=== PATIENT | female | born 1965 | race Asian ===

== ENCOUNTER → 2018-09-18 16:53 | Outpatient (CLI) | payer OTHER, SELFPAY ==
--- NOTE | 2018-09-18 16:56 | DI.MRI.S_ITS ---
PROCEDURE: MR LUMBAR SPINE WO CON INDICATIONS: RADICULOPATHY OF LUMBAR REGION TECHNIQUE: Noncontrast sagittal T1 spin echo and T2 fast echo, sagittal STIR, axial T1 and T2 fast spin echo through the lumbar spine. In cases with scoliosis, additional coronal T2 fast spin echo may be performed. COMPARISON: None. FINDINGS: Image quality: Excellent. Alignment and Curvature: There is normal bony alignment. Bone Marrow: Marrow is of normal overall signal. No acute vertebral body compression fractures. Spinal Cord: Conus medullaris terminates at the L1 level. Visualized cord demonstrates normal signal and size. Paraspinous Soft Tissues: No paravertebral masses. T12-L1: Normal appearance. L1-L2: Normal appearance. L2-L3: The disc height is well-preserved. Loss of disc signal is seen at this level. Mild generalized disc bulge is seen. No significant neural foraminal or central canal narrowing can be seen. L3-L4: The disc height is well-preserved. Loss of disc signal is seen at this level. Mild generalized disc bulge is seen. Mild to moderate bilateral neural foraminal narrowing is seen, left worse than right. The central canal is widely patent. L4-L5: The disc height and disc signal are relatively well-preserved. Mild to moderate disc bulge is seen. Moderate to prominent facet hypertrophy is seen. Moderate bilateral neural foraminal narrowing is seen, left worse than right. Moderate central canal narrowing is seen. L5-S1: The disc height and disc signal are relatively well-preserved. Mild generalized disc bulge is seen. Mild to moderate facet hypertrophy is seen. [id number] bilateral neural foraminal narrowing can be seen. [id number] central canal narrowing is seen, which is largely caused by epidural lipomatosis. IMPRESSION: Lower lumbar spine degenerative changes are seen, which are most prominent at the L4-L5 level. Dictated by: Oniel Morales M.D. on 09/18/2018 at 16:54 Approved by: Oniel Morales M.D. on 09/18/2018 at 16:57
== END ==
PROVIDERS: Visit Provider Orthopaedic Surgery
DX: M47.26 Other spondylosis with radiculopathy, lumbar region (principal)
CPT/HCPCS: 72148

== ENCOUNTER 2018-10-12 01:28 | Emergency (ER) | payer OTHER, SELFPAY ==
[2018-10-12 01:43] VITALS: BP 173/137; PULSE 105; RESP 16; TEMP 36.8; O2SAT 97; BMI 31.1
--- NOTE | 2018-10-12 01:50 | ED.FEMALEGU ---
HPI - Female Genitourinary General Chief complaint: Urogenital-Female Stated complaint: blood in urine, painful Time Seen by Provider: 10/12/18 01:36 Source: patient and family Mode of arrival: ambulatory Limitations: no limitations History of Present Illness HPI Narrative: This is a 53-year-old female who comes in with complaint of urinary frequency, urgency and dysuria. Patient states that she started having some mild symptoms on Monday she was seen at the [facility] on Monday and told that her urine was negative for bladder infection. She states her symptoms have been increasingly worse. She has a little bit of suprapubic discomfort. No real flank pain. She has felt nauseated she threw up once on Monday, she has not had any more vomiting today. She has felt a little chilled occasionally. She has not had any black or bloody stools no vaginal bleeding or discharge. Related Data Previous Rx's Medication Instructions Recorded cephalexin [Keflex] 500 mg PO BID #6 cap 10/12/18 Allergies Allergy/AdvReac Type Severity Reaction Status Date / Time No Known Drug Allergies Allergy Verified 10/12/18 01:39 Review of Systems Review of Systems ROS Unobtainable: All systems reviewed & are unremarkable except as noted in HPI and below Constitutional Reports chills and Denies fever(s) Gastrointestinal Gastrointestinal: Denies abdominal pain, Denies constipation, Denies diarrhea, Reports nausea and Reports vomiting (X1) Genitourinary Reports as per HPI (Has IUD in place), Denies abnormal vaginal bleeding, Denies hematuria, Reports urinary frequency, Reports dysuria, Reports pelvic pain (C review), Denies flank pain, Denies urinary incontinence, Reports urinary urgency and Denies vaginal discharge Musculoskeletal Denies back pain [facility] Medical History Hypertension (Acute) Surgical History History of carpal tunnel surgery (Acute) Social History Smoking Status: Unknown if ever smoked Social History Smoking Status: Unknown if ever smoked Exam Narrative Exam Narrative: GENERAL: Alert and oriented x three, well-nourished, well-appearing female in mild distress. HEENT: Head normocephalic, atraumatic, EOMI, pupils reactive, face symmetric, moist mucous membranes NECK: Supple, full range of motion CARDIOVASCULAR: Regular rate and rhythm without murmurs, rubs or gallops. RESPIRATORY: Breath sounds equal bilaterally, no wheezes rales or rhonchi. ABDOMEN: Soft, nontender. Normoactive bowel sounds all 4 quadrants. No guarding or rebound, rigidity, no mass : No CVA tenderness EXTREMITIES: Normal range of motion, no clubbing or edema. Neurovascularly intact NEUROLOGICAL: Cranial nerves II through XII grossly intact. Moving all extremities SKIN: Warm, dry, no petechiae, no rashes or lesions. Initial Vital Signs Initial Vital Signs: Vital Signs Temperature 98.3 F 10/12/18 01:43 Pulse Rate 105 H 10/12/18 01:43 Respiratory Rate 16 10/12/18 01:43 Blood Pressure 173/137 H 10/12/18 01:43 Pulse Oximetry 97 10/12/18 01:43 Course Orders Ordered: ED Orders 10/12/18 01:47 Urine Culture Stat Urine Microscopic Stat Discontinued Medications Cephalexin HCl (Keflex) 500 mg PO NOW ONE Stop: 10/12/18 01:56 Last Admin: 10/12/18 02:12 Dose: 500 mg Phenazopyridine HCl (Pyridium 100mg Prepack) 1 bottle MISC SEEINSTR ONE Stop: 10/12/18 01:56 Last Admin: 10/12/18 02:12 Dose: 1 bottle Vital Signs - 8 hr 10/12/18 01:43 Temperature 98.3 F Pulse Rate 105 H Respiratory Rate 16 Blood Pressure 173/137 H Pulse Oximetry 97 MDM - Female Genitourinary Lab Data Attestation: I reviewed the patient's lab results. Lab Results 10/12/18 Range/Units 01:47 Urine RBC 0-1/hpf (0-5/HPF) Urine WBC 5-10/hpf H (0-5/HPF) Urine Bacteria Few (2-10) H (None) Hyaline Casts 0-1/lpf (None) Ur Culture Indicated? Specimen cultured Urine Dip Bedside Urine Glucose Negative Bedside Urine Bilirubin - Negative Bedside Urine Ketone - Negative Urine Specific [place] 1.010 Bedside Urine Occult Blood ++ Bedside Urine pH 6.0 Bedside Urine Protein +/- 15 Bedside Urine Urobilinogen - Negative Bedside Urine Nitrite - Negative Bedside Urine Leukocytes ++ 125 Esterase MDM Narrative Medical decision making narrative: Patient has symptoms consistent with a UTI, given a prescription for Keflex along with 1st dose here in the ED. A prepack of peridium and several extra tablets. Discussed with patient signs and symptoms to watch for. Blood pressure is elevated but asymptomatic. Patient to follow up with primary care. Discharge Plan Departure Patient Disposition: Home Clinical Impression: Urinary tract infection, Hypertension Discharge Date/Time: 10/12/18 02:19 Interventions: ED Discharge Assessment Last Done: 10/12/18 02:18 Instructions: DI for Urinary Tract Infection (UTI) Activity Restrictions/Additional Instructions: Follow up in the next 5-7 days for recheck with your primary care physician if your symptoms are not completely gone. Take Keflex 500mg twice daily x 3 days. Take until completely gone. You may take Pyridium every 8 hr as needed for bladder spasm or urinary symptoms. This medication will make your urine orange and can stay new clothes. Return to the emergency department for fevers greater than 100.4, persistent vomiting, increasing abdominal pain, back or flank pain, worsening or new or concerning symptoms. Prescriptions: New cephalexin [Keflex] 500 mg capsule 500 mg PO BID Qty: 6 RF: 0
[2018-10-12 01:56] LABS: Bacteria Urine Few (2-10); WBC Urine 5-10/HPF (0-5/HPF)
[2018-10-12 01:57] LABS: Culture Indicated Urine Specimen Cultured; Hyaline Casts Urine 0-1/LPF; RBC Urine 0-1/HPF (0-5/HPF)
[2018-10-12] MEDS: PHENAZOPYRIDINE 100 MG PREPACK 1 BOTTLE MISC (02:12)
[2018-10-12] MEDS: cephALEXin 250 MG CAPSULE 500 MG PO (02:12)
== END 2018-10-12 02:19 | disposition home or self-care (01) ==
PROVIDERS: Emergency Provider Emergency Medicine
DX: N39.0 Urinary tract infection, site not specified (principal); I10 Essential (primary) hypertension
CPT/HCPCS: 81003; 81015; 87077; 87086; 87186; 99282; 99283

== ENCOUNTER → 2021-06-10 15:36 | Outpatient (CLI) | payer OTHER, SELFPAY ==
--- NOTE | 2021-06-10 | DI.MG.S_ITS ---
BILATERAL DIGITAL SCREENING MAMMOGRAM 3D/2D WITH CAD: 06/10/2021 CLINICAL: Routine screening. Comparison is made to exams dated: 12/14/2018 mammogram and 05/17/2018 ultrasound - [facility]. The tissue of both breasts is heterogeneously dense. This may lower the sensitivity of mammography. Current study was also evaluated with a Computer Aided Detection (CAD) system. There is a biopsy clip in the right breast. No significant masses, calcifications, or other findings are seen in either breast. There has been no significant interval change. IMPRESSION: NEGATIVE There is no mammographic evidence of malignancy. A 1 year screening mammogram is recommended. This exam was interpreted at Station ID: [id number]. NOTE: For mammograms, a report in lay terms will be sent to the patient. Approximately 15% of breast malignancies will not be visualized mammographically. In the management of a palpable breast mass, a negative mammogram must not discourage biopsy of a clinically suspicious lesion. Electronically Signed By: Meliton brannon/herman:06/10/2021 16:48:36 letter sent: Normal Exam ACR BI-RADS Category 1: Negative [id number]
== END ==
PROVIDERS: PCP Family Medicine; Referring Provider Family Medicine; Visit Provider Family Medicine
DX: Z12.31 Encounter for screening mammogram for malignant neoplasm of breast (principal)
CPT/HCPCS: 77063; 77067

== ENCOUNTER 2021-10-12 17:07 | Emergency (ER) | payer OTHER, SELFPAY ==
[2021-10-12 17:38] VITALS: BP 221/103; PULSE 91; RESP 16; TEMP 36.2; O2SAT 99; BMI 30.7
[2021-10-12 18:31] VITALS: PULSE 83; O2SAT 98
[2021-10-12 18:33] VITALS: BP 200/104; PULSE 82; O2SAT 99
[2021-10-12 18:34] VITALS: BP 182/92; PULSE 84; O2SAT 99
[2021-10-12 19:02] LABS: Bacteria Urine Moderate (10-30); RBC Urine None Seen (0-5/HPF); WBC Urine 10-30/HPF (0-5/HPF)
--- NOTE | 2021-10-12 19:05 | ED.FEMALEGU ---
HPI - Female Genitourinary <Zita Curry PA-C - Last Filed: 10/12/21 20:57> General Chief complaint: Urogenital-Female Stated complaint: UTI Sx Time Seen by Provider: 10/12/21 18:31 Source: patient Mode of arrival: Ambulatory History of Present Illness HPI Narrative: 56-year-old female with no reported past medical history presents to the ED with 3 days of dysuria, urinary frequency, urinary urgency. Patient denies frequent UTIs. Patient denies fever, chills, nausea, vomiting, abdominal pain, flank pain, lightheadedness, dizziness, syncope. Related Data Previous Rx's Medication Instructions Recorded cephalexin 500 mg capsule (Keflex) 500 mg PO BID #6 cap 10/12/18 nitrofurantoin 100 mg PO BID 5 Days #10 cap 10/12/21 monohydrate/macrocrystals 100 mg capsule (Macrobid) Allergies Allergy/AdvReac Type Severity Reaction Status Date / Time No Known Drug Allergies Allergy Verified 10/12/21 17:43 Review of Systems <Zita Curry PA-C - Last Filed: 10/12/21 20:57> Review of Systems ROS Unobtainable: All systems reviewed & are unremarkable except as noted in HPI and below Constitutional Constitutional: Denies chills, Denies fatigue, Denies fever(s), Denies frequent falls, Denies lethargy and Denies weakness Eyes Eyes: Denies change in vision, Denies eye discharge, Denies irritation and Denies loss of vision ENT Ears, Nose, Mouth, and Throat: Denies change in voice, Denies dizziness, Denies neck pain, Denies sore throat and Denies throat swelling Cardiovascular Cardiovascular: Denies chest pain, Denies irregular heart rhythm, Denies lightheadedness, Denies palpitations, Denies dyspnea, Denies dyspnea on exertion and Denies orthopnea Respiratory Respiratory: Denies cough, Denies dyspnea, Denies dyspnea on exertion and Denies wheezing Gastrointestinal Gastrointestinal: Denies abdominal pain, Denies change in bowel habits, Denies diarrhea, Denies nausea and Denies vomiting Comments: No flank pain Genitourinary Genitourinary: Denies hematuria, Reports dysuria, Reports dysuria, Denies flank pain, Denies urinary incontinence and Reports urinary urgency Comments: Dysuria, urinary frequency, urinary urgency Musculoskeletal Musculoskeletal: Denies back pain, Denies muscle weakness, Denies neck pain, Denies numbness and Denies tingling Integumentary/Breasts Skin/Breast: Denies pruritus, Denies erythema, Denies rash and Denies wounds Neurologic Neurologic: Denies behavioral changes, Denies confusion, Denies dizziness, Denies frequent falls, Denies loss of vision, Denies numbness, Denies tingling and Denies weakness Psychiatric Psychiatric: Denies anxiety, Denies behavioral changes, Denies confusion, Denies depression, Denies homicidal ideation and Denies suicidal ideation Endocrine Endocrine: Denies fatigue, Denies flushing and Denies palpitations Hematologic/Lymphatic Hematologic/Lymphatic: Denies easy bruising Allergic/Immunologic Allergic/Immunologic: Denies urticaria, Denies throat swelling and Denies wheezing Patient History <Zita Curry PA-C - Last Filed: 10/12/21 20:57> Medical History Hypertension Surgical History History of carpal tunnel surgery alcohol intake frequency: holidays/special occasions only Substance Use Type: does not use Exam <Zita Curry PA-C - Last Filed: 10/12/21 20:57> Initial Vital Signs Initial Vital Signs: Vital Signs Temperature 97.2 F L 10/12/21 17:38 Pulse Rate 91 H 10/12/21 17:38 Respiratory Rate 16 10/12/21 17:38 Blood Pressure 221/103 H 10/12/21 17:38 Pulse Oximetry 99 10/12/21 17:38 Const General: cooperative, healthy appearing and comfortable [facility] Head: normal to inspection Eyes General: appearance normal, both eyes and all related structures Neck Neck: normal visual inspection Resp Effort & Inspection: normal respiratory effort Auscultation: clear to auscultation bilaterally Cardio Rate: regular rate Rhythm: regular rhythm GI Other: Abdomen is soft, nondistended, nontender to palpation. No CVA tenderness. General: No CVA tenderness Skin General: no rashes or lesions noted Neuro General: patient alert, patient awake and patient oriented x3 Psych Appearance: grossly normal Mental Status: mental status grossly normal <Grady Magallanes DO - Last Filed: 10/13/21 00:28> Initial Vital Signs Initial Vital Signs: Vital Signs Temperature 97.2 F L 10/12/21 17:38 Pulse Rate 91 H 10/12/21 17:38 Respiratory Rate 16 10/12/21 17:38 Blood Pressure 221/103 H 10/12/21 17:38 Pulse Oximetry 99 10/12/21 17:38 Course <Zita Curry PA-C - Last Filed: 10/12/21 20:57> Orders Ordered: ED Orders 10/12/21 17:53 Urine Culture Stat 10/12/21 19:00 Urine Microscopic Stat Discontinued Medications Nitrofurantoin Macrocrystals (Nitrofurantoin Er 100 Mg Capsule) 100 mg PO NOW ONE Stop: 10/12/21 19:12 Last Admin: 10/12/21 19:21 Dose: 100 mg Documented by: [email or web address] Vital Signs Vital signs: Vital Signs - 8 hr 10/12/21 17:38 10/12/21 18:31 10/12/21 18:33 Temperature 97.2 F L Pulse Rate 91 H 83 82 Respiratory Rate 16 Blood Pressure 221/103 H 200/104 H Pulse Oximetry 99 98 99 10/12/21 18:34 10/12/21 19:24 Temperature Pulse Rate 84 89 Respiratory Rate 12 Blood Pressure 182/92 H 160/78 H Pulse Oximetry 99 98 <Grady Magallanes DO - Last Filed: 10/13/21 00:28> Orders Ordered: ED Orders 10/12/21 17:53 Urine Culture Stat 10/12/21 19:00 Urine Microscopic Stat Discontinued Medications Nitrofurantoin Macrocrystals (Nitrofurantoin Er 100 Mg Capsule) 100 mg PO NOW ONE Stop: 10/12/21 19:12 Last Admin: 10/12/21 19:21 Dose: 100 mg Documented by: [email or web address] Vital Signs Vital signs: Vital Signs - 8 hr 10/12/21 17:38 10/12/21 18:31 10/12/21 18:33 Temperature 97.2 F L Pulse Rate 91 H 83 82 Respiratory Rate 16 Blood Pressure 221/103 H 200/104 H Pulse Oximetry 99 98 99 10/12/21 18:34 10/12/21 19:24 Temperature Pulse Rate 84 89 Respiratory Rate 12 Blood Pressure 182/92 H 160/78 H Pulse Oximetry 99 98 MDM - Female Genitourinary <Zita Curry PA-C - Last Filed: 10/12/21 20:57> Lab Data Lab results narrative: UA positive for UTI Labs: Lab Results 10/12/21 Range/Units 19:00 Urine RBC None seen (0-5/HPF) Urine WBC 10-30/hpf H (0-5/HPF) Urine Bacteria Moderate (10-30) H (None) Ur Culture Indicated? Culture not indicate Urine Dip Bedside Urine Glucose Negative Bedside Urine Bilirubin - Negative Bedside Urine Ketone - Negative Urine Specific [place] 1.015 Bedside Urine Occult Blood ++ Bedside Urine pH 6.0 Bedside Urine Protein - Negative Bedside Urine Urobilinogen - Negative Bedside Urine Nitrite - Negative Bedside Urine Leukocytes ++ 125 Esterase MDM Narrative Medical decision making narrative: 56-year-old female with no reported past medical history presents to the ED with 3 days of dysuria, urinary frequency, urinary urgency. UA positive for UTI. Given history, symptoms, UA, patient likely has a UTI. Will prescribe Macrobid. Counseled patient on ED return precautions. Patient verbalized understanding. Discharge patient. <Grady Magallanes DO - Last Filed: 10/13/21 00:28> Lab Data Labs: Lab Results 10/12/21 Range/Units 19:00 Urine RBC None seen (0-5/HPF) Urine WBC 10-30/hpf H (0-5/HPF) Urine Bacteria Moderate (10-30) H (None) Ur Culture Indicated? Culture not indicate Urine Dip Bedside Urine Glucose Negative Bedside Urine Bilirubin - Negative Bedside Urine Ketone - Negative Urine Specific [place] 1.015 Bedside Urine Occult Blood ++ Bedside Urine pH 6.0 Bedside Urine Protein - Negative Bedside Urine Urobilinogen - Negative Bedside Urine Nitrite - Negative Bedside Urine Leukocytes ++ 125 Esterase Discharge Plan Departure Patient Disposition: Home Clinical Impression: Urinary tract infection Instructions: DI for Urinary Tract Infection (UTI) Activity Restrictions/Additional Instructions: You were evaluated in the ED today for painful urination. Your urinalysis showed that you have a UTI. You have been prescribed an antibiotic Macrobid for 5 days. Please make sure to complete the full course. Return to the ED if your symptoms worsen, you develop flank pain, fever, chills, nausea, vomiting. Prescriptions: New nitrofurantoin monohyd/m-cryst [Macrobid] 100 mg capsule 100 mg PO BID 5 Days Qty: 10 0RF Rx Instructions: must administer with a meal/food No Action cephalexin [Keflex] 500 mg capsule 500 mg PO BID Qty: 6 0RF Referrals: Gregory Preciado MD [Primary Care Provider] - <Grady Magallanes DO - Last Filed: 10/13/21 00:28> Cosign ED Attending Irvinature Attestation: I was immediately available in the department for consultation. This documentation has been reviewed and I agree with assessment and plan. Supervised by Grady Magallanes DO
[2021-10-12] MEDS: NITROFURANTOIN ER 100 MG CAPSULE PO (19:21)
[2021-10-12 19:24] VITALS: BP 160/78; PULSE 89; RESP 12; O2SAT 98
== END 2021-10-12 19:24 | disposition home or self-care (01) ==
PROVIDERS: Emergency Medicine; Emergency Provider Student in an Organized Health Care Education/Training Program; PCP Family Medicine
DX: N39.0 Urinary tract infection, site not specified (principal)
CPT/HCPCS: 81003; 81015; 87077; 87086; 87186; 99283

== ENCOUNTER 2021-11-25 08:23 | Emergency (ER) | payer OTHER, SELFPAY ==
[2021-11-25 08:38] VITALS: BP 176/88; PULSE 75; RESP 18; TEMP 36.9; O2SAT 97; BMI 31.4
--- NOTE | 2021-11-25 08:39 | DI.RAD.S_ITS ---
PROCEDURE: XR WRIST RT MIN 3V INDICATIONS: fall pain TECHNIQUE: 4 views of the wrist were acquired. COMPARISON: None. FINDINGS: Bones: Question scaphoid abnormality. No other fractures or dislocations. No suspicious bony lesions. Scaphoid view: There is linear sclerosis at the lateral aspect of the scaphoid waist, possibly projectional. However, cannot exclude fracture. Soft tissues: No suspicious soft tissue calcifications. IMPRESSION: At abnormal appearance of the scaphoid may be projectional. Alternatively, it may potentially represent findings of a scaphoid waist fracture. Suggest correlation with clinical examination. Comment: Findings were discussed with Dr. Garrett at the time of study dictation. Dictated by: Jamil Phillips M.D. on 11/25/2021 at 9:21 Approved by: Jamil Phillips M.D. on 11/25/2021 at 9:26
--- NOTE | 2021-11-25 08:44 | ED.UPPEXIN ---
HPI - Extremity Injury (Upper) General Chief Complaint: Extremity Injury, Upper Stated Complaint: Fell yesterday- right hand swollen Time Seen by Provider: 11/25/21 08:35 Source: patient Mode of arrival: Ambulatory History of Present Illness HPI narrative: Patient is a 56-year-old female who presents after a fall down 2 stairs. She said she was going down the stairs yesterday she tried to grab a hand rail and fell she actually landed on her left knee but is complaining of right wrist pain today. She says he is ambulatory no knee issues. Past pain in her right wrist. No elbow pain. No pain with pronation or supination no numbness tingling or weakness Related Data Previous Rx's Medication Instructions Recorded cephalexin 500 mg capsule (Keflex) 500 mg PO BID #6 cap 10/12/18 hydrocodone 5 mg-acetaminophen 325 1 tab PO Q6H PRN #10 tab 11/25/21 mg tablet Allergies Allergy/AdvReac Type Severity Reaction Status Date / Time No Known Drug Allergies Allergy Verified 10/12/21 17:43 Review of Systems Review of Systems Narrative: GENERAL: Denies chills,fever HEENT: Denies throat pain RESPIRATORY: Denies dyspnea, cough, wheezing CARDIOVASCULAR: Denies chest pain, palpitations GASTROINTESTINAL: Denies nausea, vomiting MUSCULOSKELETAL: See HPI SKIN: No rash, no laceration, no pruritus NEUROLOGIC: Denies weakness, dizziness, headache, numbness 8 point review of systems is negative except for those stated above and HPI Patient History Medical History Hypertension Surgical History History of carpal tunnel surgery Social History Smoking Status: Unknown if ever smoked Smoking Status: Unknown if ever smoked alcohol intake frequency: holidays/special occasions only Substance Use Type: does not use Exam Initial Vital Signs Initial Vital Signs: Vital Signs Temperature 98.5 F 11/25/21 08:38 Pulse Rate 75 11/25/21 08:38 Respiratory Rate 18 11/25/21 08:38 Blood Pressure 176/88 H 11/25/21 08:38 Pulse Oximetry 97 11/25/21 08:38 GENERAL: Well-appearing, well-nourished and in no acute distress. CARDIOVASCULAR: peripheral pulses in tact, cap refill <2 sec RESPIRATORY: No respiratory distress, speaks in full sentences without difficulty EXTREMITIES: Normal range of motion, no clubbing or edema. Neurovascularly intact Right upper extremity mild swelling no numbness or tingling Radian median and ulnar nerve sensation and motor intact. She does have pain over the snuffbox and scaphoid pain with resistance to thumb NEUROLOGICAL: Cranial nerves II through XII grossly intact. Normal gait and speech. SKIN: Warm, dry, no petechiae, no rashes or lesions. Course Orders Ordered: Discontinued Medications Ibuprofen (Ibuprofen 400 Mg Tablet) 800 mg PO NOW ONE Stop: 11/25/21 08:40 Last Admin: 11/25/21 08:50 Dose: 800 mg Documented by: DEL Vital Signs Vital signs: Vital Signs - 8 hr 11/25/21 08:38 Temperature 98.5 F Pulse Rate 75 Respiratory Rate 18 Blood Pressure 176/88 H Pulse Oximetry 97 MDM - Extremity Injury (Upper) Imaging Data Extremity x-ray #1: Radiologist's Impression: PROCEDURE:? XR WRIST RT MIN 3V ? INDICATIONS: fall pain ? TECHNIQUE:? 4 views of the wrist were acquired.? ? COMPARISON:? None. ? FINDINGS:? ? Bones:? Question scaphoid abnormality.? No other fractures or dislocations.? No suspicious bony lesions.? ? Scaphoid view:? There is linear sclerosis at the lateral aspect of the scaphoid waist, possibly projectional.? However, cannot exclude fracture. ? Soft tissues:? No suspicious soft tissue calcifications.? ? IMPRESSION:? At abnormal appearance of the scaphoid may be projectional.? Alternatively, it may potentially represent findings of a scaphoid waist fracture.? Suggest correlation with clinical examination. ? Comment: Findings were discussed with Dr. Garrett at the time of study dictation. ? ? Dictated by: Jamil Phillips M.D. on 11/25/2021 at 9:21 ? ? Approved by: Jamil Phillips M.D. on 11/25/2021 at 9:26 ? [facility] Narrative Medical decision making narrative: Patient is tender over the scaphoid x-ray suspicious for a scaphoid fracture. Patient placed in a thumb spica splint recommended outpatient follow-up with Orthopedics. Discharge Plan Departure Patient Disposition: Home Clinical Impression: Fracture of scaphoid Instructions: Wrist Fracture Activity Restrictions/Additional Instructions: *You have been diagnosed with scaphoid fracture *What to do: Wear splint at all times. you need to follow-up with orthopedics. *Continue to take medications as directed--> SENT TO DOD Tylenol 650 mg every 4-6 hours need for [id number] [place] 1 tab every 6 hours or at nighttime if needed for severe (please see below in monitor the amount Tylenol you are taking) *Follow up with your primary care provider in 2-3 days or call [phone] Please call orthopedics to schedule a follow-up appointment *Return to ER if you should have increasing pain, weakness any new, worsening or concerning symptoms CONTROLLED SUBSTANCE DISCHARGE (Narcotoic/benzodiazepine/Flexeril/Phenergan) 1. You have been prescribed narcotic medications, it does have acetaminophen/Tylenol/paracetamol in it, DO NOT TAKE MORE THAN 4,00mg in 24 hours of Tylenol. TRAMADOL DOES NOT CONTAIN TYLENOL 2. Please understand that we cannot provide further refills of narcotics, benzodiazepines or controlled substances through the ED and her pain management will need to be through your provider. 3. While on these medications you cannot drive or operate heavy machinery. 4. You cannot sign legal documents or perform any duties such as this. 5. As long as you're taking opiate pain medications he should also be taking a stool softener such as Colace, Dulcolax, MiraLAX or prune juice, to help avoid constipation. Prescriptions: New hydrocodone-acetaminophen 5-325 mg tablet 1 tab PO Q6H PRN (Reason: pain) Qty: 10 0RF No Action cephalexin [Keflex] 500 mg capsule 500 mg PO BID Qty: 6 0RF Referrals: [facility] [Provider Group] Gregory Preciado MD [Primary Care Provider] -
[2021-11-25] MEDS: IBUPROFEN 400 MG TABLET 800 MG PO (08:50)
[2021-11-25 10:26] VITALS: BP 175/81; PULSE 62; RESP 18; O2SAT 96
== END 2021-11-25 10:27 | disposition home or self-care (01) ==
PROVIDERS: Emergency Provider Emergency Medicine; PCP Family Medicine
DX: S62.001A Unspecified fracture of navicular [scaphoid] bone of right wrist, initial encounter for closed fracture (principal); W10.9XXA Fall (on) (from) unspecified stairs and steps, initial encounter
CPT/HCPCS: 73110; 99283

== ENCOUNTER → 2022-01-09 14:39 | Outpatient (CLI) | payer OTHER, SELFPAY ==
--- NOTE | 2022-01-09 14:42 | DI.MRI.S_ITS ---
PROCEDURE: MR WRIST RT WO CON INDICATIONS: RIGHT WRIST PAIN TECHNIQUE: Noncontrast coronal proton density fast spin echo and T2 fast spin echo with fat saturation; coronal 3-D gradient echo, axial T1 spin echo and T2 fast spin echo with fat saturation, sagittal T1 spin echo through the wrist. COMPARISON: [facility] [place], CR, XR WRIST 3+ VIEWS RIGHT, 12/24/2021, 14:32. FINDINGS: Image quality: Excellent. Bones and cartilage: The carpal bones are normally aligned. No bone marrow contusions or fractures. No evidence for avascular necrosis. Periarticular osteophyte formation at the scaphoid trapezial and 1st carpometacarpal joints. Mild degenerative marrow edema adjacent to the 1st metacarpophalangeal joint. Overlying cartilage surfaces appear normal. Carpal ligaments: The scapholunate and lunotriquetral ligaments appear intact. In the absence of intra-articular contrast, the extrinsic carpal ligaments are not well identified. On sagittal images, the pisohamate ligament appears intact. Triangular fibrocartilage complex: Horizontally oriented linear high T2 signal intensity traverses the dorsal aspect of the triangular fibrocartilage complex. The adjacent meniscal homolog appears normal in the absence of intra-articular contrast. The extensor carpi ulnaris tendon is normal in location and morphology. Tendons and soft tissues: The carpal tunnel structures appear normal, including the median nerve. The ulnar nerve appears normal within Guyon's canal. All six extensor tendon compartments demonstrate normal morphology, without pathologic tendon sheath fluid. No soft tissue ganglion cysts. IMPRESSION: 1. Findings suggestive of a triangular fibrocartilage complex tear. This could be confirmed with MRI arthrography, if clinically indicated. 2. Scaphoid trapezial and 1st carpometacarpal joint osteoarthritis. Dictated by: Gutierrez Morales M.D. on 01/10/2022 at 9:16 Approved by: Gutierrez Morales M.D. on 01/10/2022 at 9:18
== END ==
PROVIDERS: PCP Family Medicine; Referring Provider Orthopaedic Surgery; Visit Provider Orthopaedic Surgery
DX: M18.11 Unilateral primary osteoarthritis of first carpometacarpal joint, right hand (principal); M19.031 Primary osteoarthritis, right wrist
CPT/HCPCS: 73221

== ENCOUNTER 2022-07-31 10:56 | Emergency (ER) | payer OTHER, SELFPAY ==
[2022-07-31 11:01] VITALS: PULSE 102
[2022-07-31 11:02] VITALS: BP 190/87; PULSE 86; O2SAT 97
[2022-07-31 11:06] VITALS: BP 190/87; PULSE 87; RESP 18; O2SAT 98; BMI 31.1
--- NOTE | 2022-07-31 11:07 | DI.RAD.S_ITS ---
PROCEDURE: XR KNEE LT 3V INDICATIONS: pain lateral knee with bending TECHNIQUE: 3 views of the knee were acquired. COMPARISON: None. FINDINGS: Bones: No fractures or dislocations. No suspicious bony lesions. Mild tricompartmental periarticular osteophyte formation. Soft tissues: No joint effusion. No suspicious soft tissue calcifications. IMPRESSION: No acute fracture. No osseous lesion. If symptoms and/or clinical suspicion for pathology persist, further assessment with repeat, or advanced imaging (e.g., CT, MRI, or bone scan) may be helpful for further assessment. Dictated by: Gutierrez Morales M.D. on 07/31/2022 at 10:21 Approved by: Gutierrez Morales M.D. on 07/31/2022 at 10:22
--- NOTE | 2022-07-31 11:08 | ED_ITS ---
HPI - General Adult General Chief complaint: Extremity Problem,Nontraumatic Stated complaint: LT knee pain t-4 cant bend pressure hurts up back Time Seen by Provider: 07/31/22 10:59 Source: patient Mode of arrival: Ambulatory Limitations: no limitations History of Present Illness HPI narrative: Patient is a 57-year-old female who is here for evaluation of left knee pain. It has been hurting for the past 4 days. She is been doing Tylenol and ibuprofen with only minimal help. No specific injury. She was at work when it happened. She states that it feels like it hurts on the inside of her knee. There is no instability. Pain does seem to radiate up in down her leg from the knee. Related Data Previous Rx's Medication Instructions Recorded cephalexin 500 mg capsule (Keflex) 500 mg PO BID #6 caps 10/12/18 hydrocodone 5 mg-acetaminophen 325 1 tab PO Q6H PRN pain #10 tabs 11/25/21 mg tablet hydrocodone 5 mg-acetaminophen 325 1 tab PO Q4-6H PRN pain #7 tabs 07/31/22 mg tablet Allergies Allergy/AdvReac Type Severity Reaction Status Date / Time No Known Drug Allergies Allergy Verified 07/31/22 11:06 Review of Systems Musculoskeletal Musculoskeletal: Reports system reviewed and no additional complaints, except as documented Integumentary/Breasts Skin/Breast: Reports system reviewed and no additional complaints, except as documented Neurologic Neurologic: Reports system reviewed and no additional complaints, except as documented Hematologic/Lymphatic On Anticoagulants: No Patient History Medical History Hypertension Surgical History History of carpal tunnel surgery Social History Smoking Status: Unknown if ever smoked Smoking Status: Unknown if ever smoked alcohol intake frequency: holidays/special occasions only Substance Use Type: does not use Exam Initial Vital Signs Initial Vital Signs: Vital Signs Pulse Rate 87 07/31/22 11:06 Respiratory Rate 18 07/31/22 11:06 Blood Pressure 190/87 H 07/31/22 11:06 Pulse Oximetry 98 07/31/22 11:06 Oxygen Delivery Method 07/31/22 11:06 Const General: cooperative and comfortable HENMT Head: normal to inspection and normocephalic Resp Effort & Inspection: normal respiratory effort Skin General: no rashes or lesions noted Neuro General: patient alert, patient awake, patient oriented x3 and moves all extremities Sensory Exam: no sensory deficits noted Extrem Other: Patient does have tenderness to palpation on the lateral aspect of the knee. She does have discomfort along the mediolateral joint line. She is able to do a straight leg raise. She can bend her knee but it feels like it is tender on the inside. ACL MCL PCL and LCL are intact with functional testing. Course Orders Ordered: ED Orders 07/31/22 11:07 XR knee LT 3V Stat Vital Signs Vital signs: Vital Signs - 8 hr 07/31/22 11:06 07/31/22 11:09 Temperature 98.0 F Pulse Rate 87 Respiratory Rate 18 Blood Pressure 190/87 H Pulse Oximetry 98 Oxygen Delivery Method Room Air Medical Decision Making Imaging Data Extremity x-ray #1: Radiologist's Impression: [address] [address] XRay Report Signed Patient: Alysha Bojorquez MR#: [id number] : 1965 Acct:[id number] Age/Sex: 57 / F Date of Service: 07/31/22 Loc: ED Accession Number: [id number] ?? Procedure: XR knee LT 3V Ordering Provider: Stu Lanier D.O. PROCEDURE:? XR KNEE LT 3V ? INDICATIONS:? pain lateral knee with bending ? TECHNIQUE:? 3 views of the knee were acquired.? ? COMPARISON:? None. ? FINDINGS:? ? Bones:? No fractures or dislocations.? No suspicious bony lesions.? Mild tricompartmental periarticular osteophyte formation. ? Soft tissues:? No joint effusion.? No suspicious soft tissue calcifications.? ? ? IMPRESSION:? No acute fracture. No osseous lesion. If symptoms and/or clinical suspicion for pathology persist, further assessment with repeat, or advanced imaging (e.g., CT, MRI, or bone scan) may be helpful for further assessment. ? ? Dictated by: Gutierrez Morales M.D. on 07/31/2022 at 10:21 ? ? Approved by: Gutierrez Morales M.D. on 07/31/2022 at 10:22?? MDM Narrative Medical decision making narrative: Patient is neurovascularly intact. X-ray shows no signs of fracture. She did not have a specific injury. There is no effusion noted on exam. Skin is not red. Is not warm. Low suspicion for septic joint/gout. Low suspicion for ligamentous injury. Could potentially have a meniscal injury. Will discharge home with symptom control. And a left bandage was provided to her to take home for her comfort. He was given return precautions. She expressed understanding and agreement. Also low suspicion for DVT based on her clinical exam/presentation today Discharge Plan Departure Patient Disposition: Home Clinical Impression: Knee pain Instructions: How To Perform RICE (Rest, Ice, Compress, Elevate), DI for Knee Pain, How to Apply an Elastic Wrap on Knee Activity Restrictions/Additional Instructions: I recommend that you contact your primary doctor for a follow-up especially if your symptoms do not improve in the next couple days. Try to keep your leg elevated. Use ice. Use the Kelvin bandage for comfort. Return to the emergency department for any new symptoms. Prescriptions: New hydrocodone-acetaminophen 5-325 mg tablet 1 tab PO Q4-6H PRN (Reason: pain) Qty: 7 0RF No Action cephalexin [Keflex] 500 mg capsule 500 mg PO BID Qty: 6 0RF hydrocodone-acetaminophen 5-325 mg tablet 1 tab PO Q6H PRN (Reason: pain) Qty: 10 0RF Referrals: ProviderDonna [Primary Care Provider] - Stand Alone Forms: Work Release Note
[2022-07-31 11:09] VITALS: TEMP 36.7
[2022-07-31 11:30] VITALS: PULSE 77; O2SAT 97
[2022-07-31 11:31] VITALS: BP 164/79; PULSE 76; O2SAT 98
[2022-07-31] MEDS: HYDROCODONE/ACET 5/325 TABLET 1 TAB PO (11:38)
== END 2022-07-31 11:45 | disposition home or self-care (01) ==
PROVIDERS: Emergency Provider Emergency Medicine
DX: M25.562 Pain in left knee (principal)
CPT/HCPCS: 73562; 99283

== ENCOUNTER 2024-01-05 15:40 | Emergency (ER) | payer OTHER, SELFPAY ==
[2024-01-05 15:59] VITALS: BP 154/77; PULSE 81; RESP 16; TEMP 36.9; O2SAT 97; BMI 30.7
--- NOTE | 2024-01-05 17:17 | ED.BACK ---
HPI - Back Pain/Injury <Catherine Osborn PA-C - Last Filed: 01/05/24 18:33> General Chief Complaint: Back Pain/Injury Stated Complaint: fell at work T-3 Time Seen by Provider: 01/05/24 17:16 Source: patient History of Present Illness HPI Narrative: 58-year-old female presents for a work-related injury. She works at [employer] and fell on January 02, 2024. She states she was walking slipped on a cart that was nearby and fell directly onto her backside. She is denying any precipitating events. Since that time the pain has gotten worse constant and more frequent. She points to the lumbar sacral region. She denies any radiation of symptoms down the buttock or legs. She states it hurts when she gets up subsides a little bit during walking but then recurs. She is denying any numbness, tingling or loss of sensation, no issues with bowel or bladder. She does report a previous back injury in 2017 stating she was told that she has a bulging disc at L4-L5. 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 No prior surgeries. Managing her pain currently with Tylenol last dose about 6 hours ago and hot showers. She is currently menopausal. Her primary care is at the [facility]. All other systems are reviewed and are negative. Related Data Previous Rx's Medication Instructions Recorded cephalexin 500 mg capsule (Keflex) 500 mg PO BID #6 caps 10/12/18 hydrocodone 5 mg-acetaminophen 325 1 tab PO Q6H PRN pain #10 tabs 11/25/21 mg tablet hydrocodone 5 mg-acetaminophen 325 1 tab PO Q4-6H PRN pain #7 tabs 07/31/22 mg tablet hydrocodone 5 mg-acetaminophen 325 1 tab PO Q4-6H PRN pain #7 tabs 07/31/22 mg tablet cyclobenzaprine 10 mg tablet 10 mg PO TID PRN muscle spasm #20 01/05/24 tabs ibuprofen 600 mg tablet 600 mg PO Q8H 5 days #15 tabs 01/05/24 Allergies Allergy/AdvReac Type Severity Reaction Status Date / Time No Known Drug Allergies Allergy Verified 07/31/22 11:06 Patient History <Catherine Osborn PA-C - Last Filed: 01/05/24 18:33> Medical History Hypertension Surgical History History of carpal tunnel surgery Social History Smoking Status: Unknown if ever smoked Smoking Status: Unknown if ever smoked alcohol intake frequency: holidays/special occasions only Substance Use Type: does not use Exam <Catherine Osborn PA-C - Last Filed: 01/05/24 18:33> Initial Vital Signs Initial Vital Signs: Vital Signs Temperature 98.4 F 01/05/24 15:59 Pulse Rate 81 01/05/24 15:59 Respiratory Rate 16 01/05/24 15:59 Blood Pressure 154/77 H 01/05/24 15:59 Pulse Oximetry 97 01/05/24 15:59 Oxygen Delivery Method Room Air 01/05/24 15:59 Vital signs reviewed and are normal except for elevated systolic. Const Other: Smiling, seated on the gurney in no obvious distress. Neck Other: No focal bony midline tenderness, full range of motion of the neck. Resp Other: Clear to auscultation throughout. Cardio Other: Heart is regular rate and rhythm. Back/Spine/Pelvis Other: Inspection there is no discoloration or breaks in the skin, no rash to the back. She has focal tenderness in the L4-L5 S1 regions in the midline but also in the paraspinous tissues. No guarding with interspace palpation. Active range of motion she is able to demonstrate standing from a seated position without difficulty. She can forward flex reaching her fingertips to the level of her knees she has full extension. She is able to perform lateral bending left side causes pain more so than the right side, lateral rotation is also intact but causes some tightness and discomfort no guarding. Straight leg raise is negative bilaterally. Normal gait. Full weightbear. Distal neurovascular is grossly intact. Equal DP pulses. Sensory throughout all dermatomal distributions is grossly intact. Skin Other: Normal color, turgor, temperature. Neuro Other: Deep tendon reflexes are 2+ bilaterally in the knee jerk, 2+ in the ankle and plantar are downward. Sensory grossly intact. Extrem Other: Full active range of motion of the hips strength is grossly intact throughout all cardinal directions. <Stella Garrett DO - Last Filed: 01/06/24 07:38> Initial Vital Signs Initial Vital Signs: Vital Signs Temperature 98.4 F 01/05/24 15:59 Pulse Rate 81 01/05/24 15:59 Respiratory Rate 16 01/05/24 15:59 Blood Pressure 154/77 H 01/05/24 15:59 Pulse Oximetry 97 01/05/24 15:59 Oxygen Delivery Method Room Air 01/05/24 15:59 Course <Catherine Osborn PA-C - Last Filed: 01/05/24 18:33> Course Course Narrative: Treated with Toradol 30 mg IM. No adverse reaction. Orders Ordered: Discontinued Medications Ketorolac Tromethamine (Ketorolac 30 Mg/Ml Vial) 30 mg IM NOW ONE Stop: 01/05/24 18:21 Last Admin: 01/05/24 18:27 Dose: 30 mg Documented By: NL Vital Signs Vital signs: Vital Signs - 8 hr 01/05/24 15:59 Temperature 98.4 F Pulse Rate 81 Respiratory Rate 16 Blood Pressure 154/77 H Pulse Oximetry 97 Oxygen Delivery Method Room Air <Stella Garrett DO - Last Filed: 01/06/24 07:38> Orders Ordered: Discontinued Medications Ketorolac Tromethamine (Ketorolac 30 Mg/Ml Vial) 30 mg IM NOW ONE Stop: 01/05/24 18:21 Last Admin: 01/05/24 18:27 Dose: 30 mg Documented By: NL Vital Signs Vital signs: Vital Signs - 8 hr 01/05/24 15:59 Temperature 98.4 F Pulse Rate 81 Respiratory Rate 16 Blood Pressure 154/77 H Pulse Oximetry 97 Oxygen Delivery Method Room Air MDM - Back Pain/Injury <Catherine Osborn PA-C - Last Filed: 01/05/24 18:33> Medical Records Attestation: I reviewed the patient's medical records. Imaging Data Lumbar series X-ray: My Impression: Deferred to Radiology interpretation. Radiologist's Impression: PROCEDURE: XR LUMBAR SPINE 2-3V INDICATIONS: fall onto back 01/01. Pain L4, L5, S1 TECHNIQUE: 3 views of the lumbar spine were acquired. COMPARISON: None. FINDINGS: Bones: 5 [id number] vertebrae are present. There is trace grade 1 anterolisthesis of L4 on L5. No vertebral body compression fractures. No suspicious bony lesions. Mild degenerative changes at L4-L5 and L5-S1. Soft tissues: Overlying bowel gas pattern is normal. No suspicious soft tissue calcifications. IMPRESSION: No acute bony abnormality. Trace grade 1 anterolisthesis of L4 on L5. Mild discogenic degenerative changes at L4-L5 and L5-S1. Approved by: Dayan Lee M.D.,Ph.D. on 01/05/2024 at 17:50 MDM Narrative Medical decision making narrative: No acute clinical findings on examination to warrant further imaging today or surgical consult. She has good range of motion, this point she will follow up with [facility], she may benefit from physical therapy and/or pain management. This is an L and I case so she will need follow-up for potentially light duty and or off work. Again I have asked her to contact her doctor for follow-up or if the [facility] has a walk-in clinic that would be a good alternative. We discussed the use of ice, heat, she is treated with Toradol today she may start the ibuprofen tomorrow that was prescribed, 600 mg t.i.d. with food, she can continue with the Tylenol, avoid any awkward movements, heavy lifting, use pillow support at bedtime, we did discuss ergonomics, we also discussed red flag warning signs and she will return to the emergency room if she has any issues with bowel or bladder, any numbness tingling or weakness or any other worrisome symptoms. Discharge Plan Departure Patient Disposition: Home Clinical Impression: Acute low back pain Qualifiers: Back pain laterality: bilateral Sciatica presence: without sciatica Qualified Code(s): M54.50 - Low back pain, unspecified Strain of lumbar region Qualifiers: Encounter type: initial encounter Qualified Code(s): S39.012A - Strain of muscle, fascia and tendon of lower back, initial encounter Contusion of lower back Qualifiers: Encounter type: initial encounter Qualified Code(s): S30.0XXA - Contusion of lower back and pelvis, initial encounter Instructions: DI for Low Back Pain Activity Restrictions/Additional Instructions: Please follow up with her doctor at [facility], I have prescribed a muscle relaxant that you can take at bedtime or up to 3 times daily, I have also prescribed prescription strength ibuprofen your 1st dose would be tomorrow in about 12 hours time. You were given a anti-inflammatory pain shot here in the ER called Toradol. Continue to use heat therapy but also try an ice pack for about 10-15 minutes at a time over a T-shirt, this can be repeated several times. Elevate your legs if your lying flat in the bed, please avoid any heavy lifting twisting or bending from the waist, no awkward movements. Prescriptions: New cyclobenzaprine 10 mg tablet 10 mg PO TID PRN (Reason: muscle spasm) Qty: 20 0RF ibuprofen 600 mg tablet 600 mg PO Q8H 5 Days Qty: 15 0RF No Action hydrocodone-acetaminophen 5-325 mg tablet 1 tab PO Q4-6H PRN (Reason: pain) Qty: 7 0RF hydrocodone-acetaminophen 5-325 mg tablet 1 tab PO Q4-6H PRN (Reason: pain) Qty: 7 0RF cephalexin [Keflex] 500 mg capsule 500 mg PO BID Qty: 6 0RF hydrocodone-acetaminophen 5-325 mg tablet 1 tab PO Q6H PRN (Reason: pain) Qty: 10 0RF Referrals: Provider,Donna MARTINEZ [Primary Care Provider] - Stand Alone Forms: Patient Portal/API, Work Release Note ED Sign-out <Stella Garrett DO - Last Filed: 01/06/24 07:38> Cosign ED Attending Shamir Attestation: I was available for consultation.
--- NOTE | 2024-01-05 17:20 | PC.NURSE ---
denies numbness and tingling in her lower extremities. is walking with limp. hurts to stay in one position too long. denies loss of bowel or bladder control. has taken tylenol, used ice and taken hot showers with little relief. here today due to worsening pain.
--- NOTE | 2024-01-05 17:24 | DI.RAD.S_ITS ---
PROCEDURE: XR LUMBAR SPINE 2-3V INDICATIONS: fall onto back 01/01. Pain L4, L5, S1 TECHNIQUE: 3 views of the lumbar spine were acquired. COMPARISON: None. FINDINGS: Bones: 5 [id number] vertebrae are present. There is trace grade 1 anterolisthesis of L4 on L5. No vertebral body compression fractures. No suspicious bony lesions. Mild degenerative changes at L4-L5 and L5-S1. Soft tissues: Overlying bowel gas pattern is normal. No suspicious soft tissue calcifications. IMPRESSION: No acute bony abnormality. Trace grade 1 anterolisthesis of L4 on L5. Mild discogenic degenerative changes at L4-L5 and L5-S1. Approved by: Dayan Lee M.D.,Ph.D. on 01/05/2024 at 17:50
[2024-01-05] MEDS: KETOROLAC 30 MG/ML VIAL IM (18:27)
== END 2024-01-05 18:57 | disposition home or self-care (01) ==
PROVIDERS: Emergency Provider Physician Assistant Medical
DX: S39.012A Strain of muscle, fascia and tendon of lower back, initial encounter (principal); S30.0XXA Contusion of lower back and pelvis, initial encounter; W01.0XXA Fall on same level from slipping, tripping and stumbling without subsequent striking against object, initial encounter; Y93.01 Activity, walking, marching and hiking; Y92.89 Other specified places as the place of occurrence of the external cause; Y99.0 Civilian activity done for income or pay
CPT/HCPCS: 72100; 96372; 99283; J1885

== ENCOUNTER → 2024-10-07 06:15 | Outpatient (CLI) | payer OTHER, SELFPAY ==
--- NOTE | 2024-10-07 06:16 | DI.US.S_ITS ---
PROCEDURE: US ABDOMEN LIMITED INDICATIONS: RUQ PAIN TECHNIQUE: Real-time scanning was performed of the abdominal and retroperitoneal organs, with image documentation. COMPARISON: None. FINDINGS: Liver: Liver is normal in size and homogeneous in echotexture. There is mildly increased hepatic echo density. Gallbladder: No gallstones. No wall thickening. No pericholecystic edema. Negative sonographic Snyder's sign. Biliary ducts: Intrahepatic bile ducts are non-dilated. Extrahepatic bile duct caliber measures 4.2 mm. Normal is 6-7 mm or less in diameter, or 10 mm or less post-cholecystectomy. Pancreas: Visualized portions of the pancreas are sonographically normal. Miscellaneous: No free abdominal fluid. IMPRESSION: Mildly increased hepatic echogenicity, which can be seen in the setting of hepatic steatosis. No cholelithiasis or sonographic evidence of acute cholecystitis. Approved by: Dayan Lee M.D.,Ph.D. on 10/07/2024 at 13:47
== END ==
PROVIDERS: Referring Provider Physician Assistant; Visit Provider Physician Assistant
DX: R10.11 Right upper quadrant pain (principal)
CPT/HCPCS: 76705